=== PATIENT | female | born 1985 | race African-American/Black ===

== ENCOUNTER 2020-08-24 07:28 | Outpatient (CLI) | payer SELFPAY ==
[2020-08-24 09:30] VITALS: BP 120/58; PULSE 100; RESP 16; TEMP 96.4
--- NOTE | 2020-08-24 09:31 | US ---
EXAMINATION TYPE: US OB >= 14 wk fetus DATE OF EXAM: 08/24/2020 COMPARISON: None CLINICAL HISTORY: Bleeding Spotting TECHNIQUE: Transabdominal (TA) GESTATIONAL AGE / DATING Physician Established: (27 weeks/0 days) EDC: 11/23/2020 Dates by Current Scan: (26 weeks/6 days) EDC: 11/24/2020 Beta HCG (if available): Not available at this time SURVEY IUP: Single PLACENTA: Posterior PREVIA: No Previa YOON: 13.1 cm Normal in amount, debris visualized within CERVICAL LENGTH (transabdominal: norm > 3.0cm): 2.1 cm BIOMETRY PRESENTATION: Vertex BPD: 6.5 cm 26 weeks / 3 days HC: 24.8 cm 27 weeks / 0 days AC: 21.7 cm 26 weeks / 1 days FL: 5.1 cm 27 weeks / 4 days ESTIMATED WEIGHT IN GRAMS: 971 grams ESTIMATED WEIGHT IN LBS/OZ: 2 lbs. 2 oz. WEIGHT PERCENTAGE BASED ON ESTABLISHED DATES: 27% HC/AC: 1.2 Normal FL/AC: 24% Normal HEART RATE: 146 bpm RHYTHM: Normal Live IUP measuring 26 weeks 6 days with shortened cervix visualized. IMPRESSION: Single viable intrauterine corresponding to ultrasound age 26 weeks 6 days with estimated d ate of delivery November 24, 2020 and foreshortened cervix on transabdominal scanning.
--- NOTE | 2020-09-24 19:59 | P.MSEPDOC ---
Presenting Problems - Arrival Data Date of Arrival on Unit: 08/24/20 Time of Arrival on Unit: 07:28 Mode of Transport: Portable - Complaint OB-Reason for Admission/Chief Complaint: Decreased Movement, Vaginal Bleeding Medical History - Information : 4 Para: 3 Term: 1 : 2 Abortions: Spontaneous or Elective: 0 Number of Living Children: 3 - Gestational Age Gestational Age by KHRIS (wks/days): 27 Weeks and 0 Days - History Complications: Prior , Smoker Review of Systems - Review of Systems Constitutional: No problems Breast: No problems ENT: No problems Cardiovascular: No problems Respiratory: No problems Gastrointestinal: No problems Genitourinary: No problems Musculoskeletal: No problems Neurological: No problems Skin: No problems Vital Signs - Temperature Temperature: 96.4 F Temperature Source: Temporal Artery Scan - Pulse Right Pulse Rate: 100 Pulse Assessment Method: Automatic Cuff - Respirations Respiratory Rate: 16 Oxygen Delivery Method: Room Air - Blood Pressure Right Arm Blood Pressure: 120/58 Blood Pressure Mean: 78 Blood Pressure Source: Automatic Cuff Medical Screen Scoring (Pre) - Cervical Exam Dilation: 0 cm = 0 Effacement: Exam Deferred Membranes: Intact - Uterine Contractions Frequency: N/A Duration: N/A Intensity: N/A - Maternal Vital Signs Maternal Temperature: N/A Maternal Blood Pressure: N/A Signs of Preeclampsia: N/A Maternal Respirations: N/A - Maternal Trauma Maternal Trauma: N/A - Assessment - Baby A Baseline FHR: 150 Heart Rate - NICHD Category: Category I (Normal) = 0 Position: N/A Station: N/A - Total Score - Baby A Total Score - Baby A: 0 - Total Score - Baby B Total Score - Baby B: 0 - Total Score - Baby C Total Score - Baby C: 0 - Level of Risk - Baby A Level of Risk - Baby A: Low (0-5) - Level of Risk - Baby B Level of Risk - Baby B: Low (0-5) - Level of Risk - Baby C Level of Risk - Baby C: Low (0-5) Physician Notification (Pre) - Physician Notified Physician Notified Date: 08/24/20 Physician Notified Time: 09:03 New Order Received: Yes - Notification Comment Comment: Pt presented with c/o vaginal bleeding (when she wiped and noted in the toilet) and decreased movement since this AM. Pt has hx of deli veries. Back pain noted at arrival and since this AM, but is now tolerable. Dr. Farris ordered US and cervical exam. Cervix closed, US WNL. PPD screen discussed with patient, OB apt made for patient prior to DC. Pt okay to DC home with follow up. Pt to start taking her Zoloft that has been prescribed through [facility] psychiatrist. Disposition - Disposition OB Disposition: Physician follow up in office, Discharge to home Discharge Date: 08/24/20 Discharge Time: 09:27 I agree with the RN Medical Screening Exam: Yes Case reviewed; plan agreed upon as documented in EMR&OBIX.: Yes Diagnosis: DECREASED MOVEMENTS, SECOND TRIMESTER, FETUS 1
== END 2020-08-24 09:27 | disposition home or self-care (01) ==
LOC: FBPOP 07:28
PROVIDERS: ATTEND Obstetrics & Gynecology
DX: O36.8131 Decreased fetal movements, third trimester, fetus 1 (principal); Z3A.27 27 weeks gestation of pregnancy
CPT/HCPCS: 76805; 99213

== ENCOUNTER 2020-11-13 17:07 | Inpatient (IN) | payer OTHER ==
[2020-11-13] MEDS ORDERED: LIDOCAINE 0.5% (PF) 5 MG/ML (50 ML SDV) SQ PRN (17:19)
[2020-11-13] MEDS ORDERED: OXYTOCIN 10 UNIT/ML 1 ML VIAL IM PRN (17:19)
[2020-11-13] MEDS ORDERED: CARBOPROST TROMETHAMINE 250 MCG/ML 1 ML AMP IM PRN (17:19)
[2020-11-13] MEDS ORDERED: TERBUTALINE 1 MG/ML VIAL SQ PRN (17:19)
[2020-11-13] MEDS ORDERED: METHYLERGONOVINE 0.2 MG/ML 1 ML AMP IM PRN (17:19)
[2020-11-13] MEDS ORDERED: OXYTOCIN 30 UNITS/500 ML NS 30 UNIT in SALINE 1 500ML.BAG IV SCH ×2 (17:30→18:45)
[2020-11-13 17:51] LABS: Glucose,Whole Blood 127 mg/dL (75-99)
[2020-11-13] MEDS: LACTATED RINGERS 1,000 ML IV SCH ×3 (17:52→22:34)
[2020-11-13 17:56] LABS: Basophils % (A) 0 %; Eosinophils # (A) 0.2 k/uL (0-0.7); Eosinophils % (A) 2 %; HCT 30.3 % (34.0-46.0); HGB 9.9 gm/dL (11.4-16.0); Hypochromasia Slight; Lymphocytes % (A) 27 %; MCH 29.1 pg (25.0-35.0); MCHC 32.5 g/dL (31.0-37.0); MCV 89.5 fL (80.0-100.0); Monocytes # (A) 0.5 k/uL (0-1.0); Monocytes % (A) 6 %; Neutrophils # (A) 4.8 k/uL (1.3-7.7); Neutrophils % (A) 63 %; Platelet Count 237 k/uL (150-450); Poikilocytosis Slight; RBC 3.39 m/uL (3.80-5.40); RDW 14.3 % (11.5-15.5); WBC 7.7 k/uL (3.8-10.6)
[2020-11-13] MEDS ORDERED: ROPIVACAINE 5MG/ML 20ML VIAL ONE (21:30)
[2020-11-13] MEDS ORDERED: SODIUM CHLORIDE 0.9% 100 ML BAG ONE (21:30)
[2020-11-13] MEDS ORDERED: fentaNYL (PF) 50 MCG/ML 5 ML AMP ONE (21:30)
[2020-11-14] MEDS ORDERED: diphenhydrAMINE 50 MG/ML 1 ML VIAL IVP PRN ×2 (00:59)
[2020-11-14] MEDS ORDERED: SIMETHICONE 80 MG CHEWABLE PO PRN (00:59)
[2020-11-14] MEDS ORDERED: diphenhydrAMINE 50 MG CAP PO PRN (00:59)
[2020-11-14] MEDS ORDERED: HYDROCORTISONE 2.5% RECTAL CREAM 30 GM TUBE RECTAL PRN (00:59)
[2020-11-14] MEDS ORDERED: LANOLIN CREAM 5 GM TUBE TOPICAL PRN (00:59)
[2020-11-14] MEDS ORDERED: ACETAMINOPHEN TAB 325 MG TAB PO PRN (00:59)
[2020-11-14] MEDS ORDERED: ZOLPIDEM 5 MG TAB PO PRN (00:59)
[2020-11-14] MEDS ORDERED: BENZOCAINE/MENTHOL SPRAY 1 GM/SPRAY AEROSOL TOPICAL PRN (00:59)
[2020-11-14] MEDS ORDERED: diphenhydrAMINE 25 MG CAP PO PRN (00:59)
--- NOTE | 2020-11-14 01:02 | P.HPOB ---
History of Present Illness H&P Date: 11/14/20 Chief Complaint: Intrauterine PROM Raine is a 35-year-old at 38 weeks gestation who ryes in labor and delivery with spontaneous rupture membranes but no contractions. Her course was, complicated by gestational diabetes for which she was diet cont rolled. She relates that she also did smoke some marijuana but it appears that she had stopped at some point midway through the . All questions are answered for her. She understands that should she not make cervical change or there is a delay that we may need to use Pitocin for augmentation of labor. Intact following discussion with the she is asked for Pitocin to be initiated to get her into labor. She plans to use an epidural for analgesia. Category 1 tracing is noted. She is dilated to 1 cm and 70% effaced -2 station but cervix is posterior. Past Medical History Additional Past Medical History / Comment(s): gestational diabetes History of Any Multi-Drug Resistant Organisms: None Reported Past Surgical History: No Surgical Hx Reported Past Anesthesia/Blood Transfusion Reactions: No Reported Reaction Past Psychological History: No Psychological Hx Reported Smoking Status: Current every day smoker Past Alcohol Use History: None Reported Past Drug Use History: None Reported - Past Family History Son(s) Family Medical History: Asthma Medications and Allergies Home Medications Medication Instructions Recorded Confirmed Type No Known Home Medications 11/13/20 11/13/20 History Allergies Allergy/AdvReac Type Severity Reaction Status Date / Time No Known Allergies Allergy Verified 11/13/20 17:18 Exam Osteopathic Statement: *. No significant issues noted on an osteopathic structural exam other than those noted in the History and Physical/Consult. Vital Signs Temp Pulse Resp BP Pulse Ox 11/13/20 17:18 97.5 F L 102 H 16 132/81 99 Intake and Output 11/13/20 11/13/20 11/14/20 14:59 22:59 06:59 Other: # Voids 2 Weight 80.739 kg - OBG Physical Exam Breast: both: normal (no masses) Abdomen: bowel sounds normal, no diffuse tenderness, no bruit present, no guarding noted, no hepatomegaly, no splenomegaly, no mass Vulva: both: normal Vagina: normal moisture, no discharge Cervix: no lesion, no discharge Uterus: normal size, normal contour Adnexa: both: normal Anus/Rectum: normal perianal skin, no rectal mass, no hemorrhoids, heme negative Results Result Diagrams: 11/13/20 17:48 Abnormal Lab Results - Last 24 Hours (Table) 11/13/20 11/13/20 Range/Units 17:40 17:48 RBC 3.39 L (3.80-5.40) m/uL Hgb 9.9 L (11.4-16.0) gm/dL Hct 30.3 L (34.0-46.0) % POC Glucose (mg/dL) 127 H (75-99) mg/dL
--- NOTE | 2020-11-14 01:04 | P.PROBDLV ---
Vaginal Delivery Note - . Vaginal Delivery Note: Patient progressed complete and pushing with spontaneous vaginal delivery of a viable female over an intact perineum. Baby was delivered from right occiput transverse position. Once baby's head was delivered she was not really pushing effectively to bring the anterior shoulder underneath the pubic bone therefore I did reach posteriorly and help guide the posterior shoulder in a clockwise fashion without. Once baby was delivered mouth nares were bulb sucti oned and baby was placed on mother's abdomen where the umbilical cord was clamped cut usual fashion. Nursery personnel was present and assumed care. Placenta was allowed to pulsate for 30 seconds prior to clamping and cutting. Umbilical cord blood was also collected. scores are 9 and 9 at one and 5 minutes respectively and the weight is pending. It is noted that during the pushing process baby's heart rate went from baseline 120s down into the 90s. Predominantly this appeared to be head compression as it did return to baseline shortly after she stopped pushing.
[2020-11-14] MEDS: IBUPROFEN 600 MG TAB PO SCH ×4 (01:50→21:15)
[2020-11-14] MEDS: SENNOSIDES-DOCUSATE SODIUM 1 EACH TAB PO SCH ×2 (08:07→16:05)
[2020-11-14] MEDS: LACTATED RINGERS 1,000 ML IV SCH (21:25)
[2020-11-15 00:45] VITALS: RESP 16
[2020-11-15] MEDS: IBUPROFEN 600 MG TAB PO SCH ×2 (02:58→08:03)
[2020-11-15 05:53] LABS: HCT 28.7 % (34.0-46.0); HGB 9.4 gm/dL (11.4-16.0); Hypochromasia Moderate; MCH 29.3 pg (25.0-35.0); MCHC 32.8 g/dL (31.0-37.0); MCV 89.5 fL (80.0-100.0); Mean Platelet Volume 9.9; Platelet Count 225 k/uL (150-450); Poikilocytosis Slight; RBC 3.21 m/uL (3.80-5.40); RDW 14.5 % (11.5-15.5); WBC 9.3 k/uL (3.8-10.6)
[2020-11-15 07:13] LABS: Band Neutrophils % 1 %; Eosinophils # (M) 0.19 k/uL (0-0.7); Monocytes # (M) 0.37 k/uL (0-1.0); Neutrophils % (M) 64 %; Nucleated Red Blood Cells 0 /100 WBC (0-0); Total Cells Counted 100
[2020-11-15 07:15] LABS: Anisocytosis (M) Present
[2020-11-15 07:16] LABS: Polychromasia Present
[2020-11-15] MEDS: SENNOSIDES-DOCUSATE SODIUM 1 EACH TAB PO SCH (08:03)
[2020-11-15 08:24] VITALS: BP 134/94; PULSE 64; TEMP 97.4
--- NOTE | 2020-11-15 09:10 | P.DS ---
Providers Date of admission: 11/13/20 17:17 Expected date of discharge: 11/15/20 Attending physician: Monica Billings Primary care physician: Stated None Hospital Course: This is a 35-year-old female 5 para 3 at 38-5/7 weeks who presented with spontaneous rupture of membranes. She delivered vaginally a viable female on 2020 with scores of 9 at 1 minute and 9 at 5 minutes and infant weight of 6 lbs. 15 oz. Her had been complicated by gestational diabetes diet controlled. She had also been positive for marijuana on her urine drug screens. cargo services coordinator was consulted. Her course has been uncomplicated. Lochia is decreasing. Vital signs are stable. Abdomen is soft with fundus firm and nontender. Extremities show negative Homans. Impression is status post vaginal delivery day #1. Plan is to discharge home later today. Routine instructions are given. She is bottle feeding. She will be given a prescription for ibuprofen. She is advised to follow up in the office in 6 weeks for a check. She is advised to call the office if she has any further questions or concerns prior to her appointment time. Procedures: Spontaneous vaginal delivery of a viable female on 11/14/2020 Patient Condition at Discharge: Stable Plan - Discharge Summary New Discharge Prescriptions: New Ibuprofen [Motrin] 600 mg PO Q6H #60 tab Discharge Medication List Ibuprofen [Motrin] 600 mg PO Q6H #60 tab 11/15/20 [Rx] Follow up Appointment(s)/Referral(s): Monica Billings DO [Doctor of Osteopathic Medicine] - 1 Week Activity/Diet/Wound Care/Special Instructions: Instructions 1. Do not begin any exercise program for 3 weeks. 2. Do not resume sexual relations for 3 weeks or longer if uncomfortable. 3. You may take tub baths or showers at any time. 4. You may use tampons if desired after 3 weeks. 5. Keep the area of episiotomy (stitches) clean and dry. 6. If you are not nursing, wear a good fitting, supportive bra during the day and limit fluid intake for at least 1 week to prevent breast engorgement. 7. Call the office, [phone], within the next week to make appointment for your 6 week checkup if it has not already been made. 8. Report any of the following occurrences to the doctor promptly: a. Heavy, excessive bleeding b. Chills, fever c. Burning or frequency of urination d. Pain or redness and breasts if nursing e. Increasing pain or swelling in episiotomy (stitches). In addition to the above instructions, the following additional should be followed: 1. No heavy lifting or straining (exercising) until after 6 week checkup. 2. Keep abdominal incision clean and dry: You may wear a dressing if more comfortable. 3. Make office appointment for 10 days after going home or as instructed by her doctor. Discharge Disposition: HOME SELF-CARE
== END 2020-11-15 11:20 | disposition home or self-care (01) | DRG 806 ==
LOC: FBPOP 17:07 → 4FBP 17:17
PROVIDERS: ADMIT Obstetrics & Gynecology; ATTEND Obstetrics & Gynecology
PROC: 10E0XZZ Delivery of Products of Conception, External Approach (ICD-10-PCS; principal; 2020-11-13)
PROC: 3E0R3BZ Introduction of Anesthetic Agent into Spinal Canal, Percutaneous Approach (ICD-10-PCS; 2020-11-13)
DX: O24.420 Gestational diabetes mellitus in childbirth, diet controlled (principal); O99.322 Drug use complicating pregnancy, second trimester; Z37.0 Single live birth; O99.334 Smoking (tobacco) complicating childbirth; Z3A.38 38 weeks gestation of pregnancy; F17.200 Nicotine dependence, unspecified, uncomplicated; F12.90 Cannabis use, unspecified, uncomplicated; Z82.5 Family history of asthma and other chronic lower respiratory diseases
CPT/HCPCS: 59025; 84112; 85025; 86850; 86900; 86901; 99213

== ENCOUNTER 2021-06-29 13:24 | Emergency (ER) | payer OTHER ==
[2021-06-29 13:39] VITALS: BP 137/68; PULSE 92; RESP 16; TEMP 98.4
[2021-06-29] MEDS ORDERED: MORPHINE SULFATE 4 MG/ML SYRINGE IM STA (13:54)
[2021-06-29] MEDS ORDERED: methylPREDNISolone SOD SUCCI 125 MG/2 ML VIAL IM ONE (13:54)
--- NOTE | 2021-06-29 14:04 | ED ---
Back Pain HPI - General Source: patient, RN notes reviewed Limitations: no limitations <Kenan Prieto - Last Filed: 06/29/21 14:00> <Ritu Boss - Last Filed: 07/09/21 15:05> - General Chief Complaint: Back Pain/Injury Stated Complaint: R leg pain Time Seen by Provider: 06/29/21 13:48 - History of Present Illness Initial Comments: 35-year-old female presents to emergency department complaining of right lower back pain with radiation down the right leg. Patient notes that she does not have any saddle anesthesia bladder bowel incontinence or retention. Patient notes that she carries her baby on her right hip. Patient denied any injury or trauma. Patient was otherwise well-appearing. She denied other issues or complaints. She denied any chest pain shortness of breath headache nausea vomiting diarrhea constipation fever fatigue chills. (Kenan Prieto) - Related Data Previous Rx's Medication Instructions Recorded Ibuprofen [Motrin] 600 mg PO Q6H #60 tab 11/15/20 predniSONE 50 mg PO DAILY #5 tab 06/29/21 Allergies Allergy/AdvReac Type Severity Reaction Status Date / Time No Known Allergies Allergy Verified 06/29/21 13:39 Review of Systems ROS Other: All systems not noted in ROS Statement are negative. <Kenan Prieto - Last Filed: 06/29/21 14:00> ROS Other: All systems not noted in ROS Statement are negative. <Ritu Boss - Last Filed: 07/09/21 15:05> ROS Statement: Those systems with pertinent positive or pertinent negative responses have been documented in the HPI. Past Medical History Additional Past Medical History / Comment(s): gestational diabetes History of Any Multi-Drug Resistant Organisms: None Reported Past Surgical History: No Surgical Hx Reported Past Anesthesia/Blood Transfusion Reactions: No Reported Reaction Past Psychological History: No Psychological Hx Reported Smoking Status: Current every day smoker Past Alcohol Use History: None Reported Past Drug Use History: None Reported - Past Family History Son(s) Family Medical History: Asthma <Kenan Prieto - Last Filed: 06/29/21 14:00> General Exam Limitations: no limitations General appearance: alert, in no apparent distress Head exam: Present: atraumatic, normocephalic, normal inspection Eye exam: Present: normal appearance, PERRL, EOMI. Absent: scleral icterus, conjunctival injection, periorbital swelling ENT exam: Present: normal exam, mucous membranes moist Neck exam: Present: normal inspection Respiratory exam: Present: normal lung sounds bilaterally. Absent: respiratory distress, wheezes, rales, rhonchi, stridor Cardiovascular Exam: Present: regular rate, normal rhythm, normal heart sounds. Absent: systolic murmur, diastolic murmur, rubs, gallop, clicks Extremities exam: Present: normal inspection, full ROM, normal capillary refill. Absent: tenderness, pedal edema, joint swelling, calf tenderness Back exam: Present: normal inspection, tenderness (Right SI) Neurological exam: Present: alert, oriented X3 Psychiatric exam: Present: normal affect, normal mood Skin exam: Present: warm, dry, intact, normal color. Absent: rash <Kenan Prieto - Last Filed: 06/29/21 14:00> Course Vital Signs 06/29/21 13:36 Temperature 98.4 F Pulse Rate 92 Respiratory 16 Rate Blood Pressure 137/68 O2 Sat by Pulse 99 Oximetry Medical Decision Making <Kenan Prieto - Last Filed: 06/29/21 14:00> <Ritu Boss - Last Filed: 07/09/21 15:05> - Medical Decision Making 35-year-old female complaining of right lower back pain with radicular symptoms on the right leg. 125 mg of Solu-Medrol, 4 mg of IV and ordered. Given clinical symptoms and no injury or trauma patient most likely having sciatic back pain with radicular symptoms. Patient is agreed with discharge home with [facility] pharmacy follow-up primary care. Case discussed with Dr. Boss, patient discharge home. (Kenan Prieto) I was available for consultation in the emergency department. The history and physical exam were done by the midlevel provider. I was consulted for this patients care. I reviewed the case with the midlevel provider and based on their presentation of the patient, I agree with the assessment, medical decision making and plan of care as documented. Chart was dictated using [employer] dictation software. Attempts were made to correct any dictation errors however some typographical errors may persist. (Ritu Boss) Disposition Is patient prescribed a controlled substance at d/c from ED?: No Time of Disposition: 14:04 <Kenan Prieto - Last Filed: 06/29/21 14:00> <Ritu Boss - Last Filed: 07/09/21 15:05> Clinical Impression: Sciatica, Lumbar radiculopathy Disposition: HOME SELF-CARE Condition: Stable Instructions (If sedation given, give patient instructions): Acute Low Back Pain (ED) Additional Instructions: Please return to the Emergency Department if symptoms worsen or any other concerns. Follow-up with primary care 1-2 days. Take prednisone as prescribed. Can use Tylenol Motrin every 3 hours as needed for Prescriptions: predniSONE 50 mg PO DAILY #5 tab Referrals: Monica Billings DO [Primary Care Provider] - 1-2 days
== END 2021-06-29 14:11 | disposition home or self-care (01) ==
LOC: EC 13:24
DX: M54.42 Lumbago with sciatica, left side (principal); M54.16 Radiculopathy, lumbar region; F17.200 Nicotine dependence, unspecified, uncomplicated
CPT/HCPCS: 99283 ×2; 96372 ×3; J2270; J2930

== ENCOUNTER 2022-03-11 10:53 | Emergency (ER) | payer OTHER ==
[2022-03-11 10:57] VITALS: BP 113/72; PULSE 91; RESP 20; TEMP 98
[2022-03-11] MEDS ORDERED: KETOROLAC 15 MG/ML 1 ML VIAL IM STA (12:32)
--- NOTE | 2022-03-11 12:37 | ED ---
General Adult HPI - General Chief complaint: Extremity Problem,Nontraumatic Stated complaint: rt leg pain Time Seen by Provider: 03/11/22 11:51 Source: patient Mode of arrival: ambulatory Limitations: no limitations - History of Present Illness Initial comments: Patient is a 36-year-old -[place] female presents the emergency room with complaints of right hip pain radiating down into her posterior leg and buttocks region. She is tender on the upper aspect of her right buttocks. She denies any range of motion impairment or trauma. She reports that the pain has been worse since starting her job approximately one month ago in which she is on her feet often. She admits to not wearing supportive shoes at work. She is also complaining of urinary frequency with itching and mild white discharge consistent with a yeast infection. She reports that she has been keeping her perineal area clean but symptoms continue to occur. She is unsure of onset of her genitourinary symptoms. She denies any concerns regarding STDs. She is a past medical history significant for gestational diabetes otherwise no current medical history or regular medication use. She denies any other complaints or concerns at this time. - Related Data Previous Rx's Medication Instructions Recorded Fluconazole [Diflucan] 150 mg PO ONCE 2 Days #2 tab 03/11/22 Sulfamethox-Tmp 800-160Mg [Bactrim 1 tab PO Q12HR 5 Days #10 tab 03/11/22 DS 800-160 mg] methylPREDNISolone Dose Pack 4 mg PO DIRECTED #21 tab 03/11/22 [Medrol Dose Pack] Allergies Allergy/AdvReac Type Severity Reaction Status Date / Time No Known Allergies Allergy Verified 03/11/22 12:55 Review of Systems ROS Statement: Those systems with pertinent positive or pertinent negative responses have been documented in the HPI. ROS Other: All systems not noted in ROS Statement are negative. Past Medical History Additional Past Medical History / Comment(s): gestational diabetes History of Any Multi-Drug Resistant Organisms: None Reported Past Surgical History: No Surgical Hx Reported Past Anesthesia/Blood Transfusion Reactions: No Reported Reaction Past Psychological History: No Psychological Hx Reported Smoking Status: Current every day smoker Past Alcohol Use History: None Reported Past Drug Use History: None Reported - Past Family History Son(s) Family Medical History: Asthma General Exam Limitations: no limitations General appearance: alert, in no apparent distress Head exam: Present: atraumatic, normocephalic, normal inspection Eye exam: Present: normal appearance, PERRL, EOMI. Absent: scleral icterus, conjunctival injection, periorbital swelling ENT exam: Present: normal exam, mucous membranes moist Neck exam: Present: normal inspection Respiratory exam: Absent: respiratory distress, accessory muscle use GI/Abdominal exam: Present: soft, normal bowel sounds. Absent: distended, tenderness, guarding, rebound, rigid Right Hip exam: Present: normal inspection, full ROM Upper Leg exam: Present: normal inspection, full ROM Back exam: Present: normal inspection, full ROM. Absent: CVA tenderness (R), CVA tenderness (L), muscle spasm, paraspinal tenderness, vertebral tenderness Neurological exam: Present: alert, oriented X3, CN II-XII intact Psychiatric exam: Present: normal affect, normal mood Skin exam: Present: warm, dry, intact, normal color. Absent: rash Course Vital Signs 03/11/22 10:55 Temperature 98 F Pulse Rate 91 Respiratory 20 Rate Blood Pressure 113/72 O2 Sat by Pulse 98 Oximetry Medical Decision Making - Medical Decision Making Symptoms consistent for sacroiliitisIndication for diagnostic imaging at this time in the absence of any trauma, weakness or range of motion impairment, or abrupt onset of symptoms. Will give IM dose of cataract and monitor symptoms. No CVA tenderness. Will check urinalysis for UTI along with yeast buds; denies concern for STDs will defer STD testing. Pain improved with dose of Toradol will discharge home with Medrol Dosepak advised to follow-up with primary care provider along with supportive footwear. Range of motion and joint encouraged. Urinalysis consistent for urinary tract infection will treat for concurrent [place] infection as well will give Bactrim along with Diflucan. Oral fluids encouraged. Case discussed with Dr. Kelley. - Lab Data Lab Results 03/11/22 Range/Units 12:40 Urine Color Yellow Urine Appearance Cloudy H (Clear) Urine pH 5.5 (5.0-8.0) Ur Specific [place] 1.025 (1.001-1.035) Urine Protein Trace H (Negative) Urine Glucose (UA) Negative (Negative) Urine Ketones Negative (Negative) Urine Blood Negative (Negative) Urine Nitrite Negative (Negative) Urine Bilirubin Negative (Negative) Urine Urobilinogen <2.0 (<2.0) mg/dL Ur Leukocyte Esterase Large H (Negative) Urine RBC 2 (0-5) /hpf Urine WBC 2 (0-5) /hpf Ur Squamous Epith Cells 10 H (0-4) /hpf Urine Bacteria Rare H (None) /hpf Hyaline Casts 1 (0-2) /lpf Urine Mucus Moderate H (None) /hpf Disposition Clinical Impression: Sacroiliitis, UTI (urinary tract infection) Disposition: HOME SELF-CARE Condition: Fair Instructions (If sedation given, give patient instructions): Sacroiliitis (ED), Lower Back Exercises (ED), Urinary Tract Infection in Women (ED) Additional Instructions: Please complete Medrol Dosepak as prescribed. Range of motion exercises encouraged and printed out with discharge instructions. Please wear supportive f ootwear at work. Avoid heavy lifting. Complete treatment for UTI and he is infection as prescribed. Drink plenty of oral fluids and maintain good perineal care. Avoid intercourse until symptoms resolved and treatment completed. Please follow-up with your primary care provider. Please return to the emergency room if symptoms worsen or you have any other concerns. Prescriptions: Sulfamethox-Tmp 800-160Mg [Bactrim DS 800-160 mg] 1 tab PO Q12HR 5 Days #10 tab Fluconazole [Diflucan] 150 mg PO ONCE 2 Days #2 tab methylPREDNISolone Dose Pack [Medrol Dose Pack] 4 mg PO DIRECTED #21 tab Is patient prescribed a controlled substance at d/c from ED?: No Referrals: None,Stated [Primary Care Provider] - 1-2 days Time of Disposition: 14:03
[2022-03-11 13:19] LABS: Appearance,Urine Cloudy (Clear); Bacteria,Urine Rare /hpf; Bilirubin,Urine Negative (Negative); Blood,Urine Negative (Negative); Color,Urine Yellow; Glucose,Urine (UA) Negative (Negative); Hyaline Casts,Urine 1 /lpf (0-2); Ketones,Urine Negative (Negative); Leukocyte Esterase,Urine Large (Negative); Mucus,Urine Moderate /hpf; Nitrite,Urine Negative (Negative); PH, Urine 5.5 (5.0-8.0); Protein,Urine Trace (Negative); RBC,Urine 2 /hpf (0-5); Specific Gravity,Urine 1.025 (1.001-1.035); Squamous Epithelial Cell,Urine 10 /hpf (0-4); Urobilinogen,Urine <2.0 mg/dL (<2.0); WBC,Urine 2 /hpf (0-5)
== END 2022-03-11 14:19 | disposition home or self-care (01) ==
LOC: EC 10:53
DX: M46.1 Sacroiliitis, not elsewhere classified (principal); N39.0 Urinary tract infection, site not specified; F17.200 Nicotine dependence, unspecified, uncomplicated
CPT/HCPCS: 81001; 99283; 96372; J1885

== ENCOUNTER 2022-07-08 14:35 | Emergency (ER) | payer OTHER ==
[2022-07-08 14:38] VITALS: BP 129/77; PULSE 79; RESP 20; TEMP 98.5
[2022-07-08] MEDS ORDERED: AMOXIC-POT CLAV 875-125MG 1 EACH TAB PO STA (14:51)
[2022-07-08] MEDS ORDERED: KETOROLAC 15 MG/ML 1 ML VIAL IM STA (14:52)
--- NOTE | 2022-07-08 14:55 | ED ---
ENT HPI - General Chief complaint: Dental/Oral Stated complaint: Dental issue Time Seen by Provider: 07/08/22 14:43 Source: patient Mode of arrival: ambulatory Limitations: no limitations - History of Present Illness Initial comments: Patient is a 36-year-old female presenting with chief complaint of dental pain. Patient has known dental caries, has been experiencing pain to the right lower side for about 2 weeks, however states that over the last 4 days pain has been increasing. Patient has been applying heat to the area for relief, however pain is only increasing. Patient is having no difficulties breathing or swallowing. No fever or chills. No vision or hearing changes. No neck stiffness. No chest pain or difficulty breathing. Patient states that she has been trying to change her dentist due to a change in her insurance. - Related Data Previous Rx's Medication Instructions Recorded Fluconazole [Diflucan] 150 mg PO ONCE 2 Days #2 tab 03/11/22 Sulfamethox-Tmp 800-160Mg [Bactrim 1 tab PO Q12HR 5 Days #10 tab 03/11/22 DS 800-160 mg] methylPREDNISolone Dose Pack 4 mg PO DIRECTED #21 tab 03/11/22 [Medrol Dose Pack] Amoxic-Pot Clav 875-125Mg 1 tab PO BID 7 Days #14 tab 07/08/22 [Augmentin 875-125] Amoxic-Pot Clav 875-125Mg 1 tab PO BID 7 Days #14 tab 07/08/22 [Augmentin 875-125] Allergies Allergy/AdvReac Type Severity Reaction Status Date / Time No Known Allergies Allergy Verified 03/11/22 12:55 Review of Systems ROS Statement: Those systems with pertinent positive or pertinent negative responses have been documented in the HPI. ROS Other: All systems not noted in ROS Statement are negative. Past Medical History Additional Past Medical History / Comment(s): gestational diabetes History of Any Multi-Drug Resistant Organisms: None Reported Past Surgical History: No Surgical Hx Reported Past Anesthesia/Blood Transfusion Reactions: No Reported Reaction Past Psychological History: No Psychological Hx Reported Smoking Status: Current every day smoker Past Alcohol Use History: None Reported Past Drug Use History: None Reported - Past Family History Son(s) Family Medical History: Asthma General Exam Limitations: no limitations General appearance: alert, in no apparent distress Head exam: Present: atraumatic, normocephalic, normal inspection Eye exam: Present: normal appearance Expanded Mouth exam: Present: normal external inspection, tongue normal. Absent: drooling, trismus, muffled voice Teeth exam: Present: dental caries, gingival enlargement Throat exam: normal inspection Neck exam: Present: normal inspection, full ROM Respiratory exam: Present: normal lung sounds bilaterally. Absent: respiratory distress, wheezes, rales, rhonchi, stridor Cardiovascular Exam: Present: regular rate, normal rhythm, normal heart sounds. Absent: systolic murmur, diastolic murmur, rubs, gallop, clicks Neurological exam: Present: alert, oriented X3, CN II-XII intact Psychiatric exam: Present: normal affect, normal mood Skin exam: Present: warm, dry, intact, normal color. Absent: rash Course Vital Signs 07/08/22 14:36 Temperature 98.5 F Pulse Rate 79 Respiratory 20 Rate Blood Pressure 129/77 O2 Sat by Pulse 98 Oximetry Medical Decision Making - Medical Decision Making Patient is a 36-year-old female presenting with chief complaint of dental pain. Located on the right lower side, patient has known dental caries. On examination there is tenderness to palpation and some gum enlargement. No brawny induration or trismus. Normal posterior pharynx. Patient denies any difficulty breathing or swallowing. No fever or chills. No neck pain or stiffness. Patient will be treated for dental abscess with Augmentin, provided with pain medication. Patient is instructed to follow up with dentist, provided referral to [facility] if needed.Follow-up with PCP. Report back to ER with any new or worsening symptoms. Discussed return parameters and answered all questions. Patient conveyed verbal understanding and agreed to the plan. I discussed this case in detail with my attending Dr. Ravi Disposition Clinical Impression: Dental abscess Disposition: HOME SELF-CARE Condition: Good Instructions (If sedation given, give patient instructions): Dental Abscess (ED), Toothache (ED) Additional Instructions: Follow up with dentist. Report back to ER with any new or worsening symptoms. Take medication as prescribed. Take Motrin and Tylenol as needed for pain control. Dental referral: [address] [address] Prescriptions: Amoxic-Pot Clav 875-125Mg [Augmentin 875-125] 1 tab PO BID 7 Days #14 tab Amoxic-Pot Clav 875-125Mg [Augmentin 875-125] 1 tab PO BID 7 Days #14 tab Is patient prescribed a controlled substance at d/c from ED?: No Referrals: None,Stated [Primary Care Provider] - 1-2 days Time of Disposition: 14:55
[2022-07-08] MEDS ORDERED: traMADol 50 MG STARTER PACK 3 TAB BTL PO STA (14:57)
== END 2022-07-08 15:09 | disposition home or self-care (01) ==
LOC: EC 14:35
DX: K04.7 Periapical abscess without sinus (principal); F17.200 Nicotine dependence, unspecified, uncomplicated
CPT/HCPCS: 99283; 96372; J1885

== ENCOUNTER 2022-08-30 15:19 | Emergency (ER) | payer OTHER ==
[2022-08-30 15:28] VITALS: RESP 16; TEMP 98.5
[2022-08-30] MEDS ORDERED: ACET/COD 300 MG/30 MG STARTER PACK 6 TAB BTL PO STA (15:31)
[2022-08-30] MEDS ORDERED: HYDROcodone/APAP 5-325MG 1 EACH TAB PO STA (15:32)
--- NOTE | 2022-08-30 15:33 | ED ---
ENT HPI - General Chief complaint: Dental/Oral Stated complaint: Dental pain Time Seen by Provider: 08/30/22 15:30 Source: patient, RN notes reviewed Limitations: no limitations - History of Present Illness Initial comments: 37-year-old female presents emergency Department with chief complaint of left lower dental pain. Patient states that she had part of her tooth removed by the dentist over a week ago. Patient states ever since she's been having worsening pain and swelling. She states she does not have an appointment on October now. Patient also had a right upper dental extraction. Patient states she has no complaints of a nap there. Patient has normal drug ALLERGIES no fevers chills no difficulty swallowing states that she starts more, medication relief of symptoms. - Related Data Previous Rx's Medication Instructions Recorded Fluconazole [Diflucan] 150 mg PO ONCE 2 Days #2 tab 03/11/22 Sulfamethox-Tmp 800-160Mg [Bactrim 1 tab PO Q12HR 5 Days #10 tab 03/11/22 DS 800-160 mg] methylPREDNISolone Dose Pack 4 mg PO DIRECTED #21 tab 03/11/22 [Medrol Dose Pack] Amoxic-Pot Clav 875-125Mg 1 tab PO BID 7 Days #14 tab 07/08/22 [Augmentin 875-125] Amoxic-Pot Clav 875-125Mg 1 tab PO BID 7 Days #14 tab 07/08/22 [Augmentin 875-125] Ibuprofen [Motrin] 600 mg PO Q8HR PRN #20 tab 08/30/22 clindamycin HCL 300 mg PO QID #40 cap 08/30/22 Allergies Allergy/AdvReac Type Severity Reaction Status Date / Time No Known Allergies Allergy Verified 03/11/22 12:55 Review of Systems ROS Statement: Those systems with pertinent positive or pertinent negative responses have been documented in the HPI. ROS Other: All systems not noted in ROS Statement are negative. Past Medical History Additional Past Medical History / Comment(s): gestational diabetes History of Any Multi-Drug Resistant Organisms: None Reported Past Surgical History: No Surgical Hx Reported Past Anesthesia/Blood Transfusion Reactions: No Reported Reaction Past Psychological History: No Psychological Hx Reported Smoking Status: Current every day smoker Past Alcohol Use History: None Reported Past Drug Use History: None Reported - Past Family History Son(s) Family Medical History: Asthma General Exam Limitations: no limitations Course Vital Signs 08/30/22 15:26 Temperature 98.5 F Pulse Rate 80 Respiratory 16 Rate Blood Pressure 135/70 O2 Sat by Pulse 95 Oximetry Medical Decision Making - Medical Decision Making 37-year-old presented for dental pain. Patient we treated for pain control, dental infection and pressure some of the pharmacy return parameters were discussed. Disposition Clinical Impression: Pain, dental, Dental infection Disposition: HOME SELF-CARE Condition: Stable Instructions (If sedation given, give patient instructions): Toothache (ED) Additional Instructions: Please return to the Emergency Department if symptoms worsen or any other concerns. Prescriptions: clindamycin HCL 300 mg PO QID #40 cap Is patient prescribed a controlled substance at d/c from ED?: No Referrals: None,Stated [Primary Care Provider] - 1-2 days Time of Disposition: 15:32
[2022-08-30 15:55] VITALS: BP 136/78; PULSE 68
== END 2022-08-30 15:54 | disposition home or self-care (01) ==
LOC: EC 15:19
DX: K08.89 Other specified disorders of teeth and supporting structures (principal); F17.200 Nicotine dependence, unspecified, uncomplicated
CPT/HCPCS: 99282

== ENCOUNTER 2022-09-13 19:25 | Emergency (ER) | payer OTHER ==
[2022-09-13 19:51] VITALS: BP 136/73; PULSE 95; RESP 18; TEMP 96.9
[2022-09-13] MEDS ORDERED: DEXAMETHASONE SOD PHOSPHATE 10 MG/ML 1 ML VIAL IM STA (20:19)
[2022-09-13] MEDS ORDERED: KETOROLAC 15 MG/ML 1 ML VIAL IM STA (20:19)
[2022-09-13] MEDS ORDERED: ORPHENADRINE 30 MG/ML 2 ML VIAL IM STA (20:19)
--- NOTE | 2022-09-13 21:00 | XR ---
EXAMINATION TYPE: XR lumbar spine 2 or 3V DATE OF EXAM: 09/13/2022 8:36 PM INDICATION: Patient age:Female; 37 years old; Reason for study: back pain; COMPARISON: None TECHNIQUE: Frontal, lateral and coned in L5-S1 lateral views of the spine. FINDINGS: No evidence of any acute osseous pathology. No evidence of loss of vertebral body height i s seen. There is normal alignment of the lumbar vertebral bodies. No significant degeneration changes throughout the spine. IMPRESSION: 1. No acute fracture.
--- NOTE | 2022-09-13 21:25 | ED ---
Back Pain HPI - General Chief Complaint: Back Pain/Injury Stated Complaint: lower back pain, leg pain Time Seen by Provider: 09/13/22 20:14 Source: patient Limitations: no limitations - History of Present Illness Initial Comments: Patient is a 37-year-old female presenting with chief complaint of back pain. Patient injured her back 2 days ago, she was reaching down to pull up her shoe when she felt sudden onset of pain in the left side of the back that shoots down the leg. She has been taking Motrin with little pain relief. She admits to pain with range of motion. No loss of bowel or bladder control or saddle paresthesia. No dysuria or hematuria. No fever or chills. No nausea or vomiting. No chest pain, shortness of breath, abdominal pain. - Related Data Home Medications Medication Instructions Recorded Confirmed Acetaminophen Tab [Tylenol Tab] 500 - 1,000 mg PO Q4H PRN 09/13/22 09/13/22 Niva-Plus Multivitamin 1 tab PO DAILY 09/13/22 09/13/22 norethindrone-e.estradioL-iron 1 tab PO DAILY 09/13/22 09/13/22 [Bereket 24 Fe 1 mg-20 Mcg Tablet] Previous Rx's Medication Instructions Recorded Ibuprofen [Motrin] 600 mg PO Q8HR PRN #20 tab 08/30/22 Cyclobenzaprine [Flexeril] 10 mg PO HS PRN #15 tab 09/13/22 Allergies Allergy/AdvReac Type Severity Reaction Status Date / Time No Known Allergies Allergy Verified 09/13/22 21:40 Review of Systems ROS Statement: Those systems with pertinent positive or pertinent negative responses have been documented in the HPI. ROS Other: All systems not noted in ROS Statement are negative. Past Medical History Additional Past Medical History / Comment(s): gestational diabetes History of Any Multi-Drug Resistant Organisms: None Reported Past Surgical History: No Surgical Hx Reported Past Anesthesia/Blood Transfusion Reactions: No Reported Reaction Past Psychological History: No Psychological Hx Reported Smoking Status: Current every day smoker Past Alcohol Use History: None Reported Past Drug Use History: None Reported - Past Family History Son(s) Family Medical History: Asthma General Exam Limitations: no limitations General appearance: alert, in no apparent distress Head exam: Present: atraumatic, normocephalic, normal inspection Eye exam: Present: normal appearance Neck exam: Present: normal inspection Respiratory exam: Present: normal lung sounds bilaterally. Absent: respiratory distress, wheezes, rales, rhonchi, stridor Cardiovascular Exam: Present: regular rate, normal rhythm, normal heart sounds. Absent: systolic murmur, diastolic murmur, rubs, gallop, clicks Back exam: Present: normal inspection Neurological exam: Present: alert, oriented X3, CN II-XII intact Psychiatric exam: Present: normal affect, normal mood Skin exam: Present: warm, dry, intact, normal color. Absent: rash Course Vital Signs 09/13/22 19:49 Temperature 96.9 F L Pulse Rate 95 Respiratory 18 Rate Blood Pressure 136/73 O2 Sat by Pulse 97 Oximetry Medical Decision Making - Medical Decision Making Was pt. sent in by a medical professional or institution (CECILIO Jacobo, PRACTICAL NURSING TEACHER, urgent care, hospital, or half-way...) When possible be specific @ -[No] Did you speak to anyone other than the patient for history (EMS, parent, family, police, friend...)? What history was obtained from this source @ -[No] Did you review nursing and triage notes (agree or disagree)? Why? @ -[I reviewed and agree with nursing and triage notes] Were old charts reviewed (outside hosp., previous admission, EMS record, old EKG, old radiological studies, urgent care reports/EKG's, half-way records)? Report findings @ -[No old charts were reviewed] Differential Diagnosis (chest pain, altered mental status, abdominal pain women, abdominal pain men, vaginal bleeding, weakness, fever, dyspnea, syncope, headache, dizziness, GI bleed, back pain, seizure, CVA, palpatations, mental health)? @ - [facility] Differential Back Pain: Strain, zoster, cauda equina syndrome, epidural abscess, vertebral osteomye litis, discitis, fracture, subluxation, disc herniation, DJD, spinal stenosis, pyelonephritis, kidney stone this is not meant to be an all-inclusive list. EKG interpreted by me (3pts min.). @ -[As above] X-rays interpreted by me (1pt min.). @ -X-ray shows no acute process CT interpreted by me (1pt min.). @ -[None done] U/S interpreted by me (1pt. min.). @ -[None done] What testing was considered but not performed or refused? (CT, X-rays, U/S, labs)? Why? @ -[None] What meds were considered but not given or refused? Why? @ -[None] Did you discuss the management of the patient with other professionals (professionals i.e. , PA, PRACTICAL NURSING TEACHER, lab, RT, psych nurse, social organization professor, proposal development manager, teacher, chief clinical officer, pillowcase folder)? Give summary @ -[No] Was smoking cessation discussed for >3mins.? @ -[No] Was critical care preformed (if so, how long)? @ -[No] Were there social determinants of health that impacted care today? How? (Homelessness, low income, unemployed, alcoholism, drug addiction, transportation, low edu. Level, literacy, decrease access to med. care, nursing home, rehab)? @ -[No] Was there de-escalation of care discussed even if they declined (Discuss DNR or withdrawal of care, Hospice)? DNR status @ -[No] What co-morbidities impacted this encounter? (DM, HTN, Smoking, COPD, CAD, Cancer, CVA, ARF, Chemo, Hep., AIDS, mental health diagnosis, sleep apnea, morbid obesity)? @ -[None] Was patient admitted / discharged? Hospital course, mention meds given and route, prescriptions, significant lab abnormalities, going to OR and other pertinent info. @ -Patient is a 37-year-old female presenting with chief complaint of back pain. Pain is in the lower back and radiates down the leg. No red flag symptoms. Physical examination shows paraspinal muscle tenderness and pain with range of motion. X-ray shows no fracture. Patient is given Norflex, Toradol, Decadron and reports improvement on reassessment. Patient will be discharged home with prescription for cyclobenzaprine, do not take before driving or operating heavy machinery. Follow-up with PCP. Report back to ER with any new or worsening symptoms. Discussed return parameters and answered all questions. Patient conveyed verbal understanding and agreed to the plan. I discussed this case in detail with my attending Dr. Cramer Undiagnosed new problem with uncertain prognosis? @ -[No] Drug Therapy requiring intensive monitoring for toxicity (Heparin, Nitro, Insulin, Cardizem)? @ -[No] Were any procedures done? @ -[No] Diagnosis/symptom? @ -Mechanical back pain Acute, or Chronic, or Acute on Chronic? @ -Acute Uncomplicated (without systemic symptoms) or Complicated (systemic symptoms)? @ -Uncomplicated Side effects of treatment? @ -[No] Exacerbation, Progression, or Severe Exacerbation? @ -[No] Poses a threat to life or bodily function? How? (Chest pain, [place], [place], pneumonia, PE, COPD, DKA, ARF, appy, cholecystitis, CVA, Diverticulitis, Homicidal, Suicidal, threat to staff... and all critical care pts) @ -[No] Disposition Clinical Impression: Strain of lumbar region Disposition: HOME SELF-CARE Condition: Good Instructions (If sedation given, give patient instructions): Acute Low Back Pain (ED) Additional Instructions: Follow-up with PCP. Report back to ER with any new or worsening symptoms. Take medication as prescribed. Do not take cyclobenzaprine before driving or operating heavy machinery as it may cause drowsiness. Take Motrin and Tylenol as needed. Use heat and ice as needed. Prescriptions: Cyclobenzaprine [Flexeril] 10 mg PO HS PRN #15 tab PRN Reason: Spasms Is patient prescribed a controlled substance at d/c from ED?: No Referrals: Alhaji Hutchins MD [Primary Care Provider] - 1-2 days Time of Disposition: 21:47
== END 2022-09-13 21:51 | disposition home or self-care (01) ==
LOC: EC 19:25
DX: S39.012A Strain of muscle, fascia and tendon of lower back, initial encounter (principal); F17.200 Nicotine dependence, unspecified, uncomplicated; X58.XXXA Exposure to other specified factors, initial encounter
CPT/HCPCS: 99283; 72100; 96372 ×3; J1100; J2360; J1885

== ENCOUNTER 2023-05-18 19:26 | Emergency (ER) | payer OTHER ==
[2023-05-18 19:53] VITALS: RESP 18; TEMP 98.1
[2023-05-18] MEDS ORDERED: SODIUM CHLORIDE 0.9% 1,000 ML IV STA (20:09)
[2023-05-18] MEDS ORDERED: KETOROLAC 15 MG/ML 1 ML VIAL IVP STA (20:10)
[2023-05-18] MEDS ORDERED: ORPHENADRINE 30 MG/ML 2 ML VIAL IVP STA (20:10)
[2023-05-18] MEDS ORDERED: DEXAMETHASONE SOD PHOSPHATE 10 MG/ML 1 ML VIAL IVP STA (20:13)
--- NOTE | 2023-05-18 20:14 | ED ---
Dizziness HPI - General Chief Complaint: Dizziness Stated Complaint: shortness of breath, dizziness, leg pain Time Seen by Provider: 05/18/23 19:59 Source: patient, RN notes reviewed Mode of arrival: ambulatory Limitations: no limitations - History of Present Illness Initial Comments: This is a 37-year-old female who presents to the emergency department for dizziness, shortness of breath, and weakness. States that the symptoms started 2-3 days ago. When she tries to stand up, states that her head feels like it is pulsating and she gets very lightheaded. Denies a room spinning sensation. Also complains of pain in the neck and lower back. Because she is also weak, she has not been eating, and states that she is just sleeping all day. Denies a ny upper respiratory symptoms. She does complain of mild chest discomfort. Denies any nausea or vomiting. Denies any fevers, chills, sore throat, cough, palpitations, abdominal pain, nausea, vomiting, or diarrhea. MD Complaint: dizziness, lightheadedness Onset/Timin -: days(s) - Related Data Home Medications Medication Instructions Recorded Confirmed Acetaminophen Tab [Tylenol Tab] 500 - 1,000 mg PO Q4H PRN 09/13/22 09/13/22 Niva-Plus Multivitamin 1 tab PO DAILY 09/13/22 09/13/22 norethindrone-e.estradioL-iron 1 tab PO DAILY 09/13/22 09/13/22 [Bereket 24 Fe 1 mg-20 Mcg Tablet] Previous Rx's Medication Instructions Recorded Ibuprofen [Motrin] 600 mg PO Q8HR PRN #20 tab 08/30/22 Cyclobenzaprine [Flexeril] 10 mg PO HS PRN #15 tab 09/13/22 Ibuprofen [Motrin] 800 mg PO Q8H PRN #30 tab 05/18/23 methocarbamoL [Robaxin-750] 1,500 mg PO TID PRN #30 tab 05/18/23 Allergies Allergy/AdvReac Type Severity Reaction Status Date / Time No Known Allergies Allergy Verified 09/13/22 21:40 Review of Systems ROS Statement: Those systems with pertinent positive or pertinent negative responses have been documented in the HPI. ROS Other: All systems not noted in ROS Statement are negative. Past Medical History Additional Past Medical History / Comment(s): gestational diabetes History of Any Multi-Drug Resistant Organisms: None Reported Past Surgical History: No Surgical Hx Reported Past Anesthesia/Blood Transfusion Reactions: No Reported Reaction Past Psychological History: No Psychological Hx Reported Smoking Status: Current every day smoker Past Alcohol Use History: Occasional Past Drug Use History: Marijuana - Past Family History Son(s) Family Medical History: Asthma General Exam Limitations: no limitations General appearance: alert, in no apparent distress Head exam: Present: atraumatic, normocephalic, normal inspection Eye exam: Present: normal appearance, PERRL, EOMI. Absent: scleral icterus, conjunctival injection, periorbital swelling Respiratory exam: Present: normal lung sounds bilaterally. Absent: respiratory distress, wheezes, rales, rhonchi, stridor Cardiovascular Exam: Present: regular rate, normal rhythm, normal heart sounds. Absent: systolic murmur, diastolic murmur, rubs, gallop, clicks Neurological exam: Present: alert, oriented X3, CN II-XII intact Psychiatric exam: Present: normal affect, normal mood Skin exam: Present: warm, dry, intact, normal color. Absent: rash Course Vital Signs 05/18/23 05/18/23 19:50 23:14 Temperature 98.1 F Pulse Rate 98 56 L Respiratory 18 18 Rate Blood Pressure 140/83 156/93 O2 Sat by Pulse 97 98 Oximetry Medical Decision Making - Medical Decision Making This is a 37-year-old female who presents to the emergency department for dizziness and shortness of breath. Was pt. sent in by a medical professional or institution? @ -No Did you speak to anyone other than the patient for history? @ -No Did you review nursing and triage notes? @ -Yes, and I agree, it is accurate with regards to the patient's symptoms. Were old charts reviewed? @ -No Differential Diagnosis? @ -Differential Dizziness: Benign paroxysmal positional Vertigo, Menieres disease, otitis media, acoustic neuroma, vertebrobasilar insufficiency, cerebellar stroke, encephalitis, hypovolemic, arrhythmia, coronary artery syndrome, anemia, this is not meant to be an all-inclusive list EKG interpreted by me (3pts min.)? @ -EKG interpreted by me demonstrating the following: Sinus rhythm. Ventricul ar rate 70 bpm, UT interval 157 ms, QRS duration 90 ms, QTC 436 ms. X-rays interpreted by me (1pt min.)? @ -Chest x-ray obtained, my interpretation identifies no localized consolidations or infiltrates. CT interpreted by me (1pt min.)? @ -Not obtained U/S interpreted by me (1pt. min.)? @ -Not obtained What testing was considered but not performed? (CT, X-rays, U/S, labs)? Why? @ -None What meds were considered but not given? Why? @ -None Did you discuss the management of the patient with other professionals? @ -No Did you reconcile home meds? @ -No Was smoking cessation discussed for >3mins.? @ -No Was critical care preformed (if so, how long)? @ -No Were there social determinants of health that impacted care today? How? (Homelessness, low income, unemployed, alcoholism, drug addiction, transportation, low edu. Level, literacy, decrease access to med. care, prison, rehab)? @ -No Was there de-escalation of care discussed even if they declined? (Discuss DNR or withdrawal of care, Hospice)? @ -No What co-morbidities impacted this encounter? (DM, HTN, Smoking, COPD, CAD, Cancer, CVA, Hep., AIDS, mental health diagnosis, sleep apnea, morbid obesity)? @ -None Was patient admitted / discharged? @ -Discharged. Lab work obtained revealing minor hypokalemia with a potassium of 3.3, and was otherwise nonactionable. Urinalysis negative for signs of infection. Covid, influenza, RSV, and mononucleosis testing were negative. Patient treated with IV fluids, Toradol, Norflex, and Decadron, with significant relief in symptoms. She was also given 30 mEq of potassium for the hypokalemia. Discussed with the patient that she needs to try to get some nutrition and drink plenty of fluids even though she feels weak, as not being well nourished will further contribute to her symptoms. She was given prescriptions for ibuprofen and Robaxin to help with her musculoskeletal symptoms. Advised taking the ibuprofen with Tylenol. Also advised that the Robaxin is sedating and she should avoid driving or operating machinery when taking this. Otherwise advised to follow up with her primary care provider. Patient discharged home in stable condition. Undiagnosed new problem with uncertain prognosis? @ -None Drug Therapy requiring intensive monitoring for toxicity (Heparin, Nitro, Insulin, Cardizem)? @ -None Were any procedures done? @ -None Diagnosis/symptom? @ -Back pain, lightheadedness Acute, or Chronic, or Acute on Chronic? @ -Acute Uncomplicated (without systemic symptoms) or Complicated (systemic symptoms)? @ -Uncomplicated Side effects of treatment? @ -None Exacerbation, Progression, or Severe Exacerbation] @ -Not applicable Poses a threat to life or bodily function? @ -No Return precautions reviewed in depth, the patient is instructed to return to the emergency department with any new, worsening, or concerning symptoms. Patient verbalized understanding. This case was discussed in detail with the attending ED physician, Dr. Hall. Presentation, findings, and treatment plan discussed in detail as well. - Lab Data Result diagrams: 05/18/23 20:13 05/18/23 20:13 Lab Results 05/18/23 05/18/23 05/18/23 Range/Units 20:13 20:13 20:13 WBC 7.7 (3.8-10.6) k/uL RBC 4.97 (3.80-5.40) m/uL Hgb 13.8 (11.4-16.0) gm/dL Hct 43.1 (34.0-46.0) % MCV 86.6 (80.0-100.0) fL MCH 27.7 (25.0-35.0) pg MCHC 32.0 (31.0-37.0) g/dL RDW 16.4 H (11.5-15.5) % Plt Count 387 (150-450) k/uL MPV 8.2 Neutrophils % 69 % Lymphocytes % 22 % Monocytes % 6 % Eosinophils % 2 % Basophils % 0 % Neutrophils # 5.3 (1.3-7.7) k/uL Lymphocytes # 1.7 (1.0-4.8) k/uL Monocytes # 0.4 (0-1.0) k/uL Eosinophils # 0.2 (0-0.7) k/uL Basophils # 0.0 (0-0.2) k/uL Hypochromasia Slight Anisocytosis Slight D-Dimer (<0.60) mg/L FEU Sodium 136 L (137-145) mmol/L Potassium 3.3 L (3.5-5.1) mmol/L Chloride 96 L (98-107) mmol/L Carbon Dioxide 30 (22-30) mmol/L Anion Gap 10 mmol/L BUN 15 (7-17) mg/dL Creatinine 0.57 (0.52-1.04) mg/dL Est GFR (CKD-EPI)AfAm >90 (>60 ml/min/1.73 sqM) Est GFR (CKD-EPI)NonAf >90 (>60 ml/min/1.73 sqM) Glucose 136 H (74-99) mg/dL Plasma Lactic Acid Brian (0.7-2.0) mmol/L Calcium 9.8 (8.4-10.2) mg/dL Total Bilirubin 0.5 (0.2-1.3) mg/dL AST 45 H (14-36) U/L ALT 38 H (4-34) U/L Alkaline Phosphatase 80 (38-126) U/L Troponin I <0.012 (0.000-0.034) ng/mL Total Protein 8.1 (6.3-8.2) g/dL Albumin 4.3 (3.5-5.0) g/dL HCG, Qual Not Detected Urine Color Urine Appearance (Clear) Urine pH (5.0-8.0) Ur Specific [place] (1.001-1.035) Urine Protein (Negative) Urine Glucose (UA) (Negative) Urine Ketones (Negative) Urine Blood (Negative) Urine Nitrite (Negative) Urine Bilirubin (Negative) Urine Urobilinogen (<2.0) mg/dL Ur Leukocyte Esterase (Negative) Urine RBC (0-5) /hpf Urine WBC (0-5) /hpf Ur Squamous Epith Cells (0-4) /hpf Hyaline Casts (0-2) /lpf Urine Mucus (None) /hpf Urine Opiates Screen (NotDetected) Ur Oxycodone Screen (NotDetected) Urine Methadone Screen (NotDetected) Ur Propoxyphene Screen (NotDetected) Ur Barbiturates Screen (NotDetected) U Tricyclic Antidepress (NotDetected) Ur Phencyclidine Scrn (NotDetected) Ur Amphetamines Screen (NotDetected) U Methamphetamines Scrn (NotDetected) U Benzodiazepines Scrn (NotDetected) Urine Cocaine Screen (NotDetected) U Marijuana (THC) Screen (NotDetected) Heterophile Antibody (Negative) Influenza Type A (PCR) (Not Detectd) Influenza Type B (PCR) (Not Detectd) RSV (PCR) (Not Detectd) SARS-CoV-2 (PCR) (Not Detectd) 05/18/23 05/18/23 05/18/23 Range/Units 20:13 20:13 20:13 WBC (3.8-10.6) k/uL RBC (3.80-5.40) m/uL Hgb (11.4-16.0) gm/dL Hct (34.0-46.0) % MCV (80.0-100.0) fL MCH (25.0-35.0) pg MCHC (31.0-37.0) g/dL RDW (11.5-15.5) % Plt Count (150-450) k/uL MPV Neutrophils % % Lymphocytes % % Monocytes % % Eosinophils % % Basophils % % Neutrophils # (1.3-7.7) k/uL Lymphocytes # (1.0-4.8) k/uL Monocytes # (0-1.0) k/uL Eosinophils # (0-0.7) k/uL Basophils # (0-0.2) k/uL Hypochromasia Anisocytosis D-Dimer 0.51 (<0.60) mg/L FEU Sodium (137-145) mmol/L Potassium (3.5-5.1) mmol/L Chloride (98-107) mmol/L Carbon Dioxide (22-30) mmol/L Anion Gap mmol/L BUN (7-17) mg/dL Creatinine (0.52-1.04) mg/dL Est GFR (CKD-EPI)AfAm (>60 ml/min/1.73 sqM) Est GFR (CKD-EPI)NonAf (>60 ml/min/1.73 sqM) Glucose (74-99) mg/dL Plasma Lactic Acid Brian (0.7-2.0) mmol/L Calcium (8.4-10.2) mg/dL Total Bilirubin (0.2-1.3) mg/dL AST (14-36) U/L ALT (4-34) U/L Alkaline Phosphatase (38-126) U/L Troponin I (0.000-0.034) ng/mL Total Protein (6.3-8.2) g/dL Albumin (3.5-5.0) g/dL HCG, Qual Urine Color Urine Appearance (Clear) Urine pH (5.0-8.0) Ur Specific [place] (1.001-1.035) Urine Protein (Negative) Urine Glucose (UA) (Negative) Urine Ketones (Negative) Urine Blood (Negative) Urine Nitrite (Negative) Urine Bilirubin (Negative) Urine Urobilinogen (<2.0) mg/dL Ur Leukocyte Esterase (Negative) Urine RBC (0-5) /hpf Urine WBC (0-5) /hpf Ur Squamous Epith Cells (0-4) /hpf Hyaline Casts (0-2) /lpf Urine Mucus (None) /hpf Urine Opiates Screen (NotDetected) Ur Oxycodone Screen (NotDetected) Urine Methadone Screen (NotDetected) Ur Propoxyphene Screen (NotDetected) Ur Barbiturates Screen (NotDetected) U Tricyclic Antidepress (NotDetected) Ur Phencyclidine Scrn (NotDetected) Ur Amphetamines Screen (NotDetected) U Methamphetamines Scrn (NotDetected) U Benzodiazepines Scrn (NotDetected) Urine Cocaine Screen (NotDetected) U Marijuana (THC) Screen (NotDetected) Heterophile Antibody Negative (Negative) Influenza Type A (PCR) Not Detected (Not Detectd) Influenza Type B (PCR) Not Detected (Not Detectd) RSV (PCR) Not Detected (Not Detectd) SARS-CoV-2 (PCR) Not Detected (Not Detectd) 05/18/23 05/18/23 Range/Units 20:40 21:45 WBC (3.8-10.6) k/uL RBC (3.80-5.40) m/uL Hgb (11.4-16.0) gm/dL Hct (34.0-46.0) % MCV (80.0-100.0) fL MCH (25.0-35.0) pg MCHC (31.0-37.0) g/dL RDW (11.5-15.5) % Plt Count (150-450) k/uL MPV Neutrophils % % Lymphocytes % % Monocytes % % Eosinophils % % Basophils % % Neutrophils # (1.3-7.7) k/uL Lymphocytes # (1.0-4.8) k/uL Monocytes # (0-1.0) k/uL Eosinophils # (0-0.7) k/uL Basophils # (0-0.2) k/uL Hypochromasia Anisocytosis D-Dimer (<0.60) mg/L FEU Sodium (137-145) mmol/L Potassium (3.5-5.1) mmol/L Chloride (98-107) mmol/L Carbon Dioxide (22-30) mmol/L Anion Gap mmol/L BUN (7-17) mg/dL Creatinine (0.52-1.04) mg/dL Est GFR (CKD-EPI)AfAm (>60 ml/min/1.73 sqM) Est GFR (CKD-EPI)NonAf (>60 ml/min/1.73 sqM) Glucose (74-99) mg/dL Plasma Lactic Acid Brian 1.3 (0.7-2.0) mmol/L Calcium (8.4-10.2) mg/dL Total Bilirubin (0.2-1.3) mg/dL AST (14-36) U/L ALT (4-34) U/L Alkaline Phosphatase (38-126) U/L Troponin I (0.000-0.034) ng/mL Total Protein (6.3-8.2) g/dL Albumin (3.5-5.0) g/dL HCG, Qual Urine Color Yellow Urine Appearance Cloudy H (Clear) Urine pH 7.0 (5.0-8.0) Ur Specific [place] 1.037 H (1.001-1.035) Urine Protein 1+ H (Negative) Urine Glucose (UA) Negative (Negative) Urine Ketones Negative (Negative) Urine Blood Negative (Negative) Urine Nitrite Negative (Negative) Urine Bilirubin Negative (Negative) Urine Urobilinogen 2.0 (<2.0) mg/dL Ur Leukocyte Esterase Negative (Negative) Urine RBC 2 (0-5) /hpf Urine WBC 1 (0-5) /hpf Ur Squamous Epith Cells 21 H (0-4) /hpf Hyaline Casts 5 H (0-2) /lpf Urine Mucus Many H (None) /hpf Urine Opiates Screen Not Detected (NotDetected) Ur Oxycodone Screen Not Detected (NotDetected) Urine Methadone Screen Not Detected (NotDetected) Ur Propoxyphene Screen Not Detected (NotDetected) Ur Barbiturates Screen Not Detected (NotDetected) U Tricyclic Antidepress Not Detected (NotDetected) Ur Phencyclidine Scrn Not Detected (NotDetected) Ur Amphetamines Screen Not Detected (NotDetected) U Methamphetamines Scrn Not Detected (NotDetected) U Benzodiazepines Scrn Not Detected (NotDetected) Urine Cocaine Screen Detected H (NotDetected) U Marijuana (THC) Screen Detected H (NotDetected) Heterophile Antibody (Negative) Influenza Type A (PCR) (Not Detectd) Influenza Type B (PCR) (Not Detectd) RSV (PCR) (Not Detectd) SARS-CoV-2 (PCR) (Not Detectd) - Radiology Data Radiology results: report reviewed, image reviewed Disposition Clinical Impression: Back pain, Lightheadedness, Headache Disposition: HOME SELF-CARE Instructions (If sedation given, give patient instructions): Dizziness (ED) Additional Instructions: Return to the emergency department with any new, worsening, or concerning symptoms. Alternate with ibuprofen and Tylenol as needed for pain relief. You can take the Robaxin up to 3-4 times daily as needed for pain and spasms. Be aware that this may make you drowsy and you should avoid driving or operating machinery when taking this. Make sure you do your best to eat and consume fluids, as you need nourishment to help with your symptoms. Follow up with your primary care provider in 1-2 days. Prescriptions: Ibuprofen [Motrin] 800 mg PO Q8H PRN #30 tab PRN Reason: Pain methocarbamoL [Robaxin-750] 1,500 mg PO TID PRN #30 tab PRN Reason: Pain Is patient prescribed a controlled substance at d/c from ED?: No Referrals: Alhaji Hutchins MD [Primary Care Provider] - 1-2 days
[2023-05-18 20:40] LABS: Anisocytosis Slight; Basophils % (A) 0 %; Eosinophils # (A) 0.2 k/uL (0-0.7); Eosinophils % (A) 2 %; HCT 43.1 % (34.0-46.0); HGB 13.8 gm/dL (11.4-16.0); Hypochromasia Slight; Lymphocytes # (A) 1.7 k/uL (1.0-4.8); Lymphocytes % (A) 22 %; MCH 27.7 pg (25.0-35.0); MCV 86.6 fL (80.0-100.0); Mean Platelet Volume 8.2; Monocytes # (A) 0.4 k/uL (0-1.0); Monocytes % (A) 6 %; Neutrophils # (A) 5.3 k/uL (1.3-7.7); Neutrophils % (A) 69 %; Platelet Count 387 k/uL (150-450); RBC 4.97 m/uL (3.80-5.40); RDW 16.4 % (11.5-15.5); WBC 7.7 k/uL (3.8-10.6)
[2023-05-18 20:48] LABS: ALT 38 U/L (4-34); AST 45 U/L (14-36); African American GFR (CKD) >90 (>60 ml/min/1.73 sqM); Albumin 4.3 g/dL (3.5-5.0); Alkaline Phosphatase 80 U/L (38-126); Anion Gap 10 mmol/L; Blood Urea Nitrogen 15 mg/dL (7-17); Calcium 9.8 mg/dL (8.4-10.2); Carbon Dioxide 30 mmol/L (22-30); Chloride 96 mmol/L (98-107); Glucose 136 mg/dL (74-99); Non-African American GFR(CKD) >90 (>60 ml/min/1.73 sqM); Potassium 3.3 mmol/L (3.5-5.1); Sodium 136 mmol/L (137-145); Total Bilirubin 0.5 mg/dL (0.2-1.3); Total Protein 8.1 g/dL (6.3-8.2)
--- NOTE | 2023-05-18 21:02 | XR ---
EXAMINATION TYPE: XR chest 2V DATE OF EXAM: 05/18/2023 COMPARISON: NONE HISTORY: Chest pain TECHNIQUE: Frontal and lateral views of the chest are obtained. FINDINGS: There is no focal air space opacity. No evidence for pneumothorax. No pleural effusion. The cardiac silhouette size is within normal limits. The osseous structures are grossly intact. IMPRESSION: 1. No acute cardiopulmonary process.
[2023-05-18] MEDS ORDERED: POTASSIUM CHLORIDE ER 10 MEQ TAB.ER.PRT PO STA (21:04)
[2023-05-18 21:16] LABS: HCG,Qualitative Serum Not Detected
[2023-05-18 22:38] LABS: Appearance,Urine Cloudy (Clear); Bilirubin,Urine Negative (Negative); Blood,Urine Negative (Negative); Color,Urine Yellow; Glucose,Urine (UA) Negative (Negative); Hyaline Casts,Urine 5 /lpf (0-2); Ketones,Urine Negative (Negative); Leukocyte Esterase,Urine Negative (Negative); Mucus,Urine Many /hpf; Nitrite,Urine Negative (Negative); Protein,Urine 1+ (Negative); RBC,Urine 2 /hpf (0-5); Specific Gravity,Urine 1.037 (1.001-1.035); Squamous Epithelial Cell,Urine 21 /hpf (0-4); WBC,Urine 1 /hpf (0-5)
[2023-05-18 22:58] LABS: Amphetamine Screen,Urine Not Detected (NotDetected); Benzodiazepines Screen,Urine Not Detected (NotDetected); Cocaine Screen,Urine Detected (NotDetected); Methadone Screen, Urine Not Detected (NotDetected); Opiate Screen,Urine Not Detected (NotDetected); Phencyclidine Screen,Urine Not Detected (NotDetected); Tricyclic Antidepressant,Urine Not Detected (NotDetected); Urn Cannabinoid Scrn Detected (NotDetected)
[2023-05-18 22:59] LABS: Barbiturate Screen,Urine Not Detected (NotDetected); Oxycodone Screen, Urine Not Detected (NotDetected)
[2023-05-18] MEDS ORDERED: ACET/COD 300 MG/30 MG STARTER PACK 6 TAB BTL PO STA (23:05)
[2023-05-18] MEDS ORDERED: CYCLOBENZAPRINE 10MG STARTER 3 TAB BTL PO STA (23:05)
[2023-05-18] MEDS ORDERED: IBUPROFEN 600 MG STARTER PACK 4 TAB BTL PO STA (23:05)
[2023-05-18 23:19] VITALS: BP 156/93; PULSE 56
== END 2023-05-18 23:22 | disposition home or self-care (01) ==
LOC: EC 19:26
DX: M54.9 Dorsalgia, unspecified (principal); R42 Dizziness and giddiness; R51.9 Headache, unspecified; F12.90 Cannabis use, unspecified, uncomplicated; F17.200 Nicotine dependence, unspecified, uncomplicated; Z20.822 Contact with and (suspected) exposure to COVID-19
CPT/HCPCS: 36415; 93005; 85379; 80053; 83605; 84484; 85025; 86308; 81001; 84703; 80306; 87636; 71046; 99284; 96374; 96375 ×2; 96361; J1100; J2360; J1885

== ENCOUNTER 2024-03-20 12:39 | Emergency (ER) | payer OTHER ==
[2024-03-20 13:04] VITALS: TEMP 98
--- NOTE | 2024-03-20 13:27 | ED ---
Extremity Problem HPI - General Chief complaint: Extremity Injury, Lower Stated complaint: R knee pain/toe pain R Time Seen by Provider: 03/20/24 13:06 Source: patient, RN notes reviewed Mode of arrival: ambulatory Limitations: no limitations - History of Present Illness Initial comments: This is a 38-year-old female who presents to the emergency department for right lower extremity pain. States that over the last several days she's had pain in the knee radiating down into the foot. Denies any injuries or history of similar symptoms in the past, however she has been learning how to do yoga and wonders if that may have contributed to the pain. The pain is making it difficult for her to ambulate. She has noticed swelling during some of these days. Denies any chest pain or shortness of breath. MD Complaint: extremity pain - Related Data Home Medications Medication Instructions Recorded Confirmed Acetaminophen Tab [Tylenol Tab] 500 - 1,000 mg PO Q4H PRN 09/13/22 09/13/22 Niva-Plus Multivitamin 1 tab PO DAILY 09/13/22 09/13/22 norethindrone-e.estradioL-iron 1 tab PO DAILY 09/13/22 09/13/22 [Bereket 24 Fe 1 mg-20 Mcg Tablet] Previous Rx's Medication Instructions Recorded Ibuprofen [Motrin] 600 mg PO Q8HR PRN #20 tab 08/30/22 Cyclobenzaprine [Flexeril] 10 mg PO HS PRN #15 tab 09/13/22 Ibuprofen [Motrin] 800 mg PO Q8H PRN #30 tab 05/18/23 methocarbamoL [Robaxin-750] 1,500 mg PO TID PRN #30 tab 05/18/23 Cyclobenzaprine [Flexeril] 10 mg PO TID PRN #30 tab 03/20/24 Naproxen Sodium 550 mg PO BID PRN #30 tablet 03/20/24 Allergies Allergy/AdvReac Type Severity Reaction Status Date / Time No Known Allergies Allergy Verified 03/20/24 13:04 Review of Systems ROS Statement: Those systems with pertinent positive or pertinent negative responses have been documented in the HPI. ROS Other: All systems not noted in ROS Statement are negative. Past Medical History Additional Past Medical History / Comment(s): gestational diabetes History of Any Multi-Drug Resistant Organisms: None Reported Past Surgical History: No Surgical Hx Reported Past Anesthesia/Blood Transfusion Reactions: No Reported Reaction Past Psychological History: No Psychological Hx Reported Smoking Status: Vaper Past Alcohol Use History: Occasional Past Drug Use History: Marijuana - Past Family History Son(s) Family Medical History: Asthma General Exam Limitations: no limitations General appearance: alert, in no apparent distress Head exam: Present: atraumatic, normocephalic, normal inspection Respiratory exam: Present: normal lung sounds bilaterally. Absent: respiratory distress, wheezes, rales, rhonchi, stridor Cardiovascular Exam: Present: regular rate, normal rhythm, normal heart sounds. Absent: systolic murmur, diastolic murmur, rubs, gallop, clicks Extremities exam: Present: other (Tenderness to palpation over the right knee and calf. No swelling or deformities. Full ROM. 2+ DP and PT pulses. ) Neurological exam: Present: alert, oriented X3, CN II-XII intact Psychiatric exam: Present: normal affect, normal mood Skin exam: Present: warm, dry, intact, normal color. Absent: rash Course Vital Signs 03/20/24 03/20/24 13:00 15:13 Temperature 98.0 F Pulse Rate 102 H 85 Respiratory 18 20 Rate Blood Pressure 132/94 136/87 O2 Sat by Pulse 98 98 Oximetry Medical Decision Making - Medical Decision Making This is a 38 year old female who presents to the emergency department for right leg pain. Was pt. sent in by a medical professional or institution? @ -No Did you speak to anyone other than the patient for history? @ -No Did you review nursing and triage notes? @ -Yes, and I agree, it is accurate with regards to the patient's symptoms. Were old charts reviewed? @ -No Differential Diagnosis? @ -Differential Musculoskeletal: Muscular strain, contusion, ligament sprain, fracture, arthritis, septic arthritis, bursitis, cellulitis, muscle spasm, nerve compression, DVT, arterial occlusion, herpes zoster, electrolyte abnormality, tumor.... This is not meant to be in all inclusive list EKG interpreted by me (3pts min.)? @ -Not obtained X-rays interpreted by me (1pt min.)? @ -X-ray of the right knee obtained. My interpretation identifies no acute fractures. CT interpreted by me (1pt min.)? @ -Not obtained U/S interpreted by me (1pt. min.)? @ -Duplex US of the right lower extremity obtained. My interpretation identifies no evidence of a DVT. What testing was considered but not performed? (CT, X-rays, U/S, labs)? Why? @ -None What meds were considered but not given? Why? @ -None Did you discuss the management of the patient with other professionals? @ -No Did you reconcile home meds? @ -No Was smoking cessation discussed for >3mins.? @ -No Was critical care preformed (if so, how long)? @ -No Were there social determinants of health that impacted care today? How? (Homelessness, low income, unemployed, alcoholism, drug addiction, transportation, low edu. Level, literacy, decrease access to med. care, residential, rehab)? @ -No Was there de-escalation of care discussed even if they declined? (Discuss DNR or withdrawal of care, Hospice)? @ -No What co-morbidities impacted this encounter? (DM, HTN, Smoking, COPD, CAD, Cancer, CVA, Hep., AIDS, mental health diagnosis, sleep apnea, morbid obesity)? @ -None Was patient admitted / discharged? @ -Discharged. She had tenderness to the knee and calf on exam. Physical exam was otherwise unremarkable. There were no visible changes and she was neurovascularly intact. Duplex US of the right lower extremity obtained revealing no evidence of a DVT or other acute process. X-ray of the right knee obtained as well revealing no acute process. Pain was managed in the emergency department. Rx for Naproxen and Flexeril provided. She was given a knee immobilizer to help with ambulation and discharged home in stable condition and advised to follow up with her PCP. Undiagnosed new problem with uncertain prognosis? @ -None Drug Therapy requiring intensive monitoring for toxicity (Heparin, Nitro, Insulin, Cardizem)? @ -None Were any procedures done? @ -None Diagnosis/symptom? @ -Right leg pain Acute, or Chronic, or Acute on Chronic? @ -Acute Uncomplicated (without systemic symptoms) or Complicated (systemic symptoms)? @ -Uncomplicated Side effects of treatment? @ -None Exacerbation, Progression, or Severe Exacerbation] @ -Not applicable Poses a threat to life or bodily function? @ -No Return precautions reviewed in depth, the patient is instructed to return to the emergency department with any new, worsening, or concerning symptoms. Patient verbalized understanding. This case was discussed in detail with the attending ED physician, Dr. Ravi. Presentation, findings, and treatment plan discussed in detail as well. - Radiology Data Radiology results: report reviewed, image reviewed Disposition Clinical Impression: Right leg pain Disposition: HOME SELF-CARE Instructions (If sedation given, give patient instructions): Leg Pain (ED) Additional Instructions: Return to the emergency department with any new, worsening, or concerning symptoms. Take the naproxen twice daily with Tylenol as needed for pain relief. You can take the Flexeril up to 3 times daily. Be aware that this may make you drowsy. Follow up with your primary care provider in 1-2 days. Prescriptions: Cyclobenzaprine [Flexeril] 10 mg PO TID PRN #30 tab PRN Reason: Pain Naproxen Sodium 550 mg PO BID PRN #30 tablet PRN Reason: Pain Is patient prescribed a controlled substance at d/c from ED?: No Referrals: None,Stated [Primary Care Provider] - 1-2 days Time of Disposition: 14:30
--- NOTE | 2024-03-20 13:36 | US ---
EXAMINATION TYPE: US venous doppler duplex LE RT DATE OF EXAM: 03/20/2024 1:26 PM COMPARISON: NONE CLINICAL INDICATION: Female, 38 years old with history of Pain; RLE knee and calf pain x 2 weeks. Fam jeffrey Hx DVT; Patient denies any other signs, symptoms, or relevant history SIDE PERFORMED: Right TECHNIQUE: The lower extremity deep venous system is examined utilizing real time linear array sonog nidhi with graded compression, doppler sonography and color-flow sonography. VESSELS IMAGED: Common Femoral Vein Deep Femoral Vein Greater Saphenous Vein * Femoral Vein Popliteal Vein Small Saphenous Vein * Proximal Calf Veins (* superficial vessels) Right Leg: Negative for DVT Left Leg: NA IMPRESSION: Grayscale, color doppler, spectral doppler imaging performed of the deep veins of the lo wer extremities. There is normal flow, compressibility, vascular waveforms.
[2024-03-20] MEDS: KETOROLAC 15 MG/ML 1 ML VIAL IVP STA (13:40)
[2024-03-20] MEDS: MORPHINE SULFATE 2 MG/ML SYRINGE IVP STA (13:41)
--- NOTE | 2024-03-20 13:58 | XR ---
EXAMINATION TYPE: XR knee complete RT DATE OF EXAM: 03/20/2024 CLINICAL HISTORY: pain TECHNIQUE: Three views of the right knee are obtained. COMPARISON: None. FINDINGS: There is no acute fracture/dislocation. The tri-compartment joint spaces appear within no rmal limits. The overlying soft tissue appears unremarkable. IMPRESSION: There is no acute fracture or dislocation. ICD 10 NO FRACTURE, INITIAL EVALUATION
[2024-03-20] MEDS: DEXAMETHASONE SOD PHOSPHATE 10 MG/ML 1 ML VIAL IVP STA (14:38)
[2024-03-20] MEDS: ORPHENADRINE 30 MG/ML 2 ML VIAL IVP STA (14:38)
[2024-03-20] MEDS: traMADol 50 MG STARTER PACK 3 TAB BTL PO STA (15:02)
[2024-03-20 15:14] VITALS: BP 136/87; PULSE 85; RESP 20
== END 2024-03-20 15:14 | disposition home or self-care (01) ==
LOC: EC 12:39
DX: M79.604 Pain in right leg (principal); F17.290 Nicotine dependence, other tobacco product, uncomplicated
CPT/HCPCS: 73562; 93971; 99284; 96374; 96375 ×3; L1830; J1100; J2360; J2270; J1885